=== PATIENT | male | born 1980 | race Caucasian/White ===

== ENCOUNTER 2019-03-09 18:35 | Emergency (ER) | payer SELFPAY ==
[~2019-03-09] VITALS: Ht 170.2 cm; Wt 83.0 kg
[2019-03-09 18:38] VITALS: Ht 170.2 cm; Wt 83.0 kg
[2019-03-09 19:27] VITALS: BP 116/75
== END 2019-03-09 19:27 | disposition other institution (70) ==
LOC: ED 18:35
DX: Z04.1 Encounter for examination and observation following transport accident (principal); F17.210 Nicotine dependence, cigarettes, uncomplicated

== ENCOUNTER 2019-03-09 18:56 | Emergency (ER) | payer OTHER | END 2019-03-09 19:27 | disposition other institution (70) | LOC: ED 18:56 | DX: Z02.89 Encounter for other administrative examinations (principal) ==